=== PATIENT | male | born 1965 | race Caucasian/White ===

== ENCOUNTER 2017-07-20 12:50 | Inpatient (IN) | payer MEDICARE ==
--- NOTE | 2017-07-20 13:07 | ED ---
General Adult HPI - General Chief complaint: Allergic Reaction Stated complaint: allergic reaction Time Seen by Provider: 07/20/17 12:50 Source: patient, EMS, RN notes reviewed Mode of arrival: EMS - History of Present Illness Initial comments: This a 52-year-old male who presents emergency department complaining of having swelling of his lips and uvula. Patient was seen at [place] [address] and they were uncomfortable keeping him so they sent him to our emergency department. Patient was given epinephrine steroids and Benadryl and it did help reduce his symptoms but they did return and that is why he returned back to [place]. Patient is on lisinopril. Patient has had no difficulty swallowing or difficulty breathing. - Related Data Allergies Allergy/AdvReac Type Severity Reaction Status Date / Time lisinopril AdvReac Swelling Verified 07/20/17 12:54 Review of Systems ROS Statement: Those systems with pertinent positive or pertinent negative responses have been documented in the HPI. ROS Other: All systems not noted in ROS Statement are negative. Past Medical History Past Medical History: Chest Pain / Angina, COPD, Hyperlipidemia, Hypertension History of Any Multi-Drug Resistant Organisms: None Reported Past Surgical History: Hernia Repair Past Psychological History: No Psychological Hx Reported Smoking Status: Current every day smoker Past Alcohol Use History: None Reported Past Drug Use History: None Reported General Exam - General Exam Comments Initial Comments: GENERAL: Patient is well-developed and well-nourished. Patient is nontoxic and well- hydrated and is in mild distress. ENT: Neck is soft and supple. No significant lymphadenopathy is noted. Oropharynx is clear. Moist mucous membranes. Neck has full range of motion without eliciting any pain. Patient's uvula is swollen and upper lip is very swollen. EYES: The sclera were anicteric and conjunctiva were pink and moist. Extraocular movements were intact and pupils were equal round and reactive to light. Eyelids were unremarkable. PULMONARY: Unlabored respirations. Good breath sounds bilaterally. No audible rales rhonchi or wheezing was noted. CARDIOVASCULAR: There is a regular rate and rhythm without any murmurs gallops or rubs. ABDOMEN: Soft and nontender with normal bowel sounds. No palpable organomegaly was noted. There is no palpable pulsatile mass. SKIN: Skin is clear with no lesions or rashes and otherwise unremarkable. NEUROLOGIC: Patient is alert and oriented 2 Cranial nerves II through XII are grossly intact. Motor and sensory are also intact. Normal speech, volume and content. Symmetrical smile. MUSCULOSKELETAL: Normal extremities with adequate strength and full range of motion. No lower extremity swelling or edema. No calf tenderness. LYMPHATICS: No significant lymphadenopathy is noted PSYCHIATRIC: Normal psychiatric evaluation. Course Vital Signs 07/20/17 12:54 Temperature 100.1 F H Pulse Rate 95 Respiratory 18 Rate Blood Pressure 172/112 O2 Sat by Pulse 98 Oximetry Disposition Clinical Impression: Angioedema Disposition: ADMITTED IP TO THIS HOSP Referrals: Annmarie Segal DO [Primary Care Provider] - 1-2 days Time of Disposition: 13:08
[2017-07-20] MEDS ORDERED: SODIUM CHLORIDE 0.9% 1,000 ML IV ONE (13:08)
[2017-07-20] MEDS ORDERED: hydrALAZINE HCL 20 MG/ML 1 ML VIAL IVP STA ×2 (13:50→14:13)
[2017-07-20] MEDS ORDERED: THIAMINE 100 MG/ML 2 ML VIAL IM STA (15:49)
--- NOTE | 2017-07-20 16:06 | XR ---
EXAMINATION TYPE: XR chest 1V portable DATE OF EXAM: 07/20/2017 Comparison: None Clinical History: 52 year-old female shortness of breath, CHF Findings: The cardiomediastinal silhouette, aorta, and pulmonary vasculature are within normal limits. Some in terstitial prominence as a chronic appearance. Otherwise, lungs and pleural spaces are clear. Dege nerative changes at the right greater than left shoulders. Impression: Some chronic appearing changes. No acute process seen.
[2017-07-20 16:26] LABS: Basophils % (A) 0 %; CH 36.6; CHCM 33.6; Eosinophils # (A) 0.1 k/uL (0-0.7); Eosinophils % (A) 1 %; HCT 38.9 % (39.0-53.0); HDW 2.13; Luc # (Auto) 0.03; Luc % (Auto) 1; Lymphocytes # (A) 0.5 k/uL (1.0-4.8); Lymphocytes % (A) 9 %; MCH 36.7 pg (25.0-35.0); MCHC 33.5 g/dL (31.0-37.0); MCV 109.6 fL (80.0-100.0); Macrocytosis Marked; Mean Platelet Volume 9.3; Monocytes # (A) 0.2 k/uL (0-1.0); Monocytes % (A) 3 %; Neutrophils # (A) 4.8 k/uL (1.3-7.7); Neutrophils % (A) 87 %; RBC 3.55 m/uL (4.30-5.90); RDW 14.1 % (11.5-15.5); WBC 5.6 k/uL (3.8-10.6); WBC (Perox) 6.32
[2017-07-20 16:32] LABS: Calcium 9.1 mg/dL (8.4-10.2); Potassium 4.4 mmol/L (3.5-5.1); Total Bilirubin 0.7 mg/dL (0.2-1.3)
[2017-07-20 16:41] LABS: Appearance,Urine Clear (Clear); Bilirubin,Urine Negative (Negative); Glucose,Urine (UA) Trace (Negative); Ketones,Urine Negative (Negative); Leukocyte Esterase,Urine Negative (Negative); Mucus,Urine Rare /hpf; Nitrite,Urine Negative (Negative); PH, Urine 6.5 (5.0-8.0); Particle Count 832; Protein,Urine 3+ (Negative); RBC,Urine 1 /hpf (0-5); Specific Gravity,Urine 1.014 (1.001-1.035); UA Billing (MACRO vs. MICRO) MICRO; Urobilinogen,Urine <2.0 mg/dL (<2.0); WBC,Urine <1 /hpf (0-5)
[2017-07-20 16:42] LABS: Magnesium 0.5 mg/dL (1.6-2.3)
--- NOTE | 2017-07-20 16:43 | HP ---
HISTORY AND PHYSICAL DATE OF SERVICE: 07/20/2017. CHIEF COMPLAINT: Allergic reaction and lip swelling. HISTORY OF PRESENT ILLNESS: This 52-year-old gentleman with a past history of COPD, angina, hypertension, hyperlipidemia, history of nicotine dependence being followed by Dr. Nisreen Segal in [place] has present to [facility] in [place] also at least twice because of complaints swelling of lips and uvula. The patient was uncomfortable. Patient was on epinephrine and steroids and Benadryl and because of lack of improvement the patient was transferred to [facility] for further evaluation and treatment. Patient is on lisinopril also. There is no history of fever, rigors. No headache, loss of consciousness, seizures. The patient is slightly jittery at this time. PAST MEDICAL HISTORY: COPD, hypertension, hyperlipidemia. MEDICATIONS: Prior to admission include: list is not available. ALLERGIES: LISINOPRIL FAMILY HISTORY: No history of heart disease or strokes in the family. SOCIAL HISTORY: History of smoking. No history of alcohol intake. REVIEW OF SYSTEMS: ENT: As mentioned earlier. CARDIOVASCULAR: No angina. RESPIRATORY: No cough, hemoptysis. GI: No nausea. : No dysuria. NERVOUS SYSTEM: No numbness or weakness. ALLERGY/IMMUNOLOGY: No asthma or hayfever. MUSCULOSKELETAL: As mentioned earlier. HEMATOLOGY: No history of anemia. ENDOCRINE: No history of diabetes or hypothyroidism. CONSTITUTIONAL: As mentioned earlier. DERMATOLOGY: Negative. RHEUMATOLOGY: Negative. PSYCHIATRY: As mentioned earlier. PHYSICAL EXAMINATION: Patient is alert and oriented x3. Pulse 99, blood pressure 196/124, respiration 18, temperature 100.1, pulse ox 98% room air. HEENT: Conjunctivae normal. Oral mucosa moist. Otherwise upper lip swelling present, nontender. Dental caries present. NECK: No jugular venous distention. No carotid bruit. No lymph node enlargement. CARDIOVASCULAR: S1, S2. No S3, no S4. RESPIRATORY: Breath sounds diminished at the bases. A few scattered rhonchi and crackles. ABDOMEN: Soft, nontender. No mass palpable. LEGS: No edema. No swelling. NERVOUS SYSTEM: Higher functions as mentioned earlier. Moves all four limbs. No focal motor deficits. LYMPHATICS: No lymphadenopathy in the neck, axillae or groin. SKIN: No ulcer, rash, bleeding. LABS: Not available at this time. ASSESSMENT: 1. Bilateral lip swelling possibly angioedema possibly secondary to lisinopril. 2. Change in mental status, possibly metabolic encephalopathy. 3. Chronic obstructive pulmonary disease. 4. Hypertension. 5. Hyperlipidemia. 6. History of hernia repair. 7. History of nicotine dependence. RECOMMENDATIONS AND DISCUSSION: In this 52-year-old gentleman who presented with multiple complex medical issues , will monitor the patient closely. Continue the current medications, continue the symptomatic treatment. Otherwise, IV steroids have been initiated. I would also continue the Benadryl. I would also recommend Pepcid and continue to monitor. Basic labs will be ordered. CT scan of the brain to be done if not done previously. The prognosis guarded because of multiple complex medical issues. Further recommendations to follow. MMODL / IJN: [id number] / JOSELIN
[2017-07-20 16:56] VITALS: BMI 26.4
--- NOTE | 2017-07-20 16:58 | CT ---
EXAMINATION TYPE: CT brain wo con DATE OF EXAM: 07/20/2017 COMPARISON: NONE HISTORY: 52-year-old male with Facial swelling. TECHNIQUE: Examination was done in axial plane without intravenous contrast. Coronal and sagittal r econstructions performed. CT DLP: 1052.10 mGycm Automated exposure control for dose reduction was used. FINDINGS: There is no evidence of acute intracranial hemorrhage, acute ischemic changes, mass, mass-effect, or extra-axial fluid collection. There is no effacement of cerebral sulci or basal subarachnoid cister ns. There is no hydrocephalus. There is no midline shift. Lyons-white matter distinction is preserv ed. Mild patchy white matter hypodensities. Large polyp or mucosal retention cyst in the left maxillary sinus and some frothy partial opacificati on. Mastoid air cells are well pneumatized. Orbits and globes are intact. Questionable mild scalp swelling posteriorly, axial image 38. IMPRESSION: 1. No acute intracranial abnormality seen. Mild changes of chronic small vessel ischemic disease. 2. Left maxillary sinus disease with a large polyp or mucosal retention cyst. Some frothy partial opa cification could reflect an acute viral sinusitis. Clinically correlate.
[2017-07-20] MEDS: LORazepam 1 MG TAB PO PRN ×2 (16:59→21:01)
[2017-07-20] MEDS: NICOTINE 14MG/24HR PATCH TRANSDERM SCH (17:13)
[2017-07-20] MEDS: metFORMIN 500 MG TAB PO SCH (17:14)
[2017-07-20] MEDS: PANTOPRAZOLE 40 MG TABLET PO SCH (17:15)
[2017-07-20] MEDS: THIAMINE 100 MG TAB PO SCH (17:15)
[2017-07-20] MEDS: METOPROLOL TARTRATE 50 MG TAB PO SCH (17:15)
[2017-07-20 17:19] LABS: Glucose,Whole Blood 158 mg/dL (75-99)
[2017-07-20] MEDS: SODIUM CHLORIDE 0.9% 1,000 ML IV SCH (17:30)
[2017-07-20] MEDS: methylPREDNISolone SOD SUCCI 125 MG/2 ML VIAL IV SCH (18:20)
[2017-07-20] MEDS ORDERED: Magnesium Replacement Protocol 1 EACH MISC MISCELLANE PRN (18:52)
[2017-07-20] MEDS: MAGNESIUM SULFATE-D5W PMX 1 GM in DEXTROSE/WATER 1 100ML.BAG IVPB SCH ×2 (19:52→20:58)
[2017-07-20 20:39] LABS: Glucose,Whole Blood 110 mg/dL (75-99)
[2017-07-20] MEDS: FAMOTIDINE 20 MG/2 ML VIAL IV SCH (20:58)
[2017-07-20] MEDS: POTASSIUM CHLORIDE ER 20 MEQ TAB.ER PO SCH (20:58)
[2017-07-20] MEDS: cloNIDine HCL 0.2 MG TAB PO SCH (20:58)
[2017-07-20] MEDS: diphenhydrAMINE 50 MG/ML 1 ML VIAL IVP PRN (22:24)
[2017-07-20] MEDS: LORazepam 2 MG/ML SYRINGE IV PRN ×3 (22:25→23:45)
[2017-07-20] MEDS ORDERED: HALOPERIDOL LACTATE 5 MG/ML 1 ML VIAL IM PRN (23:34)
[2017-07-20] MEDS ORDERED: HALOPERIDOL LACTATE 5 MG/ML 1 ML VIAL IVP PRN (23:35)
[2017-07-21] LABS: Glucose,Whole Blood 125 mg/dL (75-99)
[2017-07-21] MEDS ORDERED: PROPOFOL 1,000 MG/100 ML VIAL IV ONE (00:55)
[2017-07-21] MEDS ORDERED: SUCCINYLCHOLINE CHLORIDE 100 MG/5 ML SYR IV ONE (01:15)
[2017-07-21] MEDS ORDERED: PROPOFOL 1,000 MG/100 ML VIAL IV SCH (01:15)
[2017-07-21] MEDS: MAGNESIUM SULFATE-D5W PMX 1 GM in DEXTROSE/WATER 1 100ML.BAG IVPB SCH ×4 (01:19→08:58)
[2017-07-21] MEDS: methylPREDNISolone SOD SUCCI 125 MG/2 ML VIAL IV SCH ×5 (01:21→23:56)
[2017-07-21] MEDS ORDERED: NALOXONE 0.4 MG/ML 1 ML VIAL IV PRN (01:22)
[2017-07-21] MEDS: LORazepam 2 MG/ML SYRINGE IV PRN ×11 (01:41→22:37)
--- NOTE | 2017-07-21 01:44 | XR ---
EXAM: XR Chest, 1 View CLINICAL HISTORY: Reason: Tube placement TECHNIQUE: Frontal view of the chest. COMPARISON: 07/20/17 FINDINGS: Lungs: Unremarkable. No consolidation. Pleural space: Unremarkable. No pneumothorax. Heart: Unremarkable. No cardiomegaly. Mediastinum: Unremarkable. Bones/joints: Unremarkable. Tubes, lines and devices: NG tube seen entering the stomach. Endotracheal tube in place with tip located 4 cm above the greta in satisfactory position. IMPRESSION: No acute findings. Satisfactory positioning of endotracheal tube and NG tube.
[2017-07-21 02:10] LABS: ABG Base Excess -3.9 mmol/L; ABG HCO3 21 mmol/L (21-25); ABG PCO2 38 mmHg (35-45); ABG PH 7.36 (7.35-7.45); ABG PO2 341 mmHg (83-108); ABG TCO2 22 mmol/L (19-24)
[2017-07-21 04:04] LABS: Basophils % (A) 0 %; CH 35.7; Eosinophils % (A) 1 %; HCT 31.3 % (39.0-53.0); HDW 2.07; HGB 10.2 gm/dL (13.0-17.5); Luc # (Auto) 0.08; Luc % (Auto) 2; Lymphocytes # (A) 0.6 k/uL (1.0-4.8); Lymphocytes % (A) 12 %; MCH 36.5 pg (25.0-35.0); MCHC 32.5 g/dL (31.0-37.0); MCV 112.3 fL (80.0-100.0); Macrocytosis Marked; Mean Platelet Volume 9.1; Monocytes # (A) 0.3 k/uL (0-1.0); Monocytes % (A) 5 %; Neutrophils # (A) 3.7 k/uL (1.3-7.7); Neutrophils % (A) 80 %; RBC 2.79 m/uL (4.30-5.90); WBC 4.6 k/uL (3.8-10.6); WBC (Perox) 4.78
[2017-07-21 04:12] LABS: Calcium 8.1 mg/dL (8.4-10.2); Magnesium 1.5 mg/dL (1.6-2.3); Phosphorous 4.2 mg/dL (2.5-4.5); Potassium 4.5 mmol/L (3.5-5.1)
--- NOTE | 2017-07-21 07:16 | XR ---
EXAMINATION TYPE: XR chest 1V portable DATE OF EXAM: 07/21/2017 COMPARISON: 07/21/2017 HISTORY: Tube placement TECHNIQUE: Single frontal view of the chest is obtained. FINDINGS: New right basilar opacity is seen obscuring the right hemidiaphragm and costophrenic angle with a gradient effect and likely related to a small right pleural effusion. Endotracheal tube appea rs slightly more cephalad in position in comparison to the prior exam, however this may relate to pat ient's chin positioning. Attention on follow-up exams. Enteric tube is coiled within the region of the gastric body with the fenestrated portion beyond the gastroesophageal junction and distal tip beyond the [id number]. Left lung remains clear. Cardiomed iastinal silhouette is stable. IMPRESSION: 1. New right basilar opacity, likely relating to small right pleural effusion and associated compress jomar subsegmental atelectasis. 2. Endotracheal tube tip is slightly more cephalad in position to the prior exam although this is lik juancho related to patient positioning.
[2017-07-21 08:10] LABS: Glucose,Whole Blood 137 mg/dL (75-99)
[2017-07-21] MEDS: metFORMIN 500 MG TAB PO SCH ×2 (08:49→17:29)
[2017-07-21] MEDS ORDERED: CHLORHEXIDINE GLUCONATE 15 ML CUP MUCOUS MEM SCH (09:00)
[2017-07-21] MEDS: FAMOTIDINE 20 MG/2 ML VIAL IV SCH (09:46)
[2017-07-21] MEDS: METOPROLOL TARTRATE 50 MG TAB PO SCH (09:47)
[2017-07-21] MEDS: SODIUM CHLORIDE 0.9% 1,000 ML IV SCH (09:47)
[2017-07-21] MEDS: cloNIDine HCL 0.2 MG TAB PO SCH ×2 (09:47→21:03)
[2017-07-21] MEDS: PANTOPRAZOLE 40 MG TABLET PO SCH (09:48)
[2017-07-21] MEDS: POTASSIUM CHLORIDE ER 20 MEQ TAB.ER PO SCH ×2 (09:48→20:57)
[2017-07-21] MEDS: diphenhydrAMINE 50 MG/ML 1 ML VIAL IVP PRN ×2 (10:29→21:55)
--- NOTE | 2017-07-21 10:55 | P.CNPUL ---
History of Present Illness Consult date: 07/21/17 Reason for consult: dyspnea, chest pain, hypoxemia Chief complaint: Angioedema History of present illness: Consult dated 07/21/2017 This is a 52-year-old male who was admitted on July 21. He apparently came into the emergency department complaining of swelling of his lips and uvula. He was seen a [facility] twice or uncomfortable keeping him and sent him to the emergency department. He received epinephrine steroids and Benadryl. Somewhere along the way, the patient was intubated. Today he looks like he might be ready for extubation. We'll put him on pressure support of 5 CPAP of 5 and see if we can get some weaning parameters and a cuff leak on him. The patient otherwise seems be doing relatively well. He was treated with all the usual state including antihistamines steroids and epinephrine. The patient does have a history of heavy drinking. His past medical history is positive for COPD hyperlipidemia hypertension and angina. He apparently is occurring every day smoker. The patient currently is on the vent settings of the assist control mode rate of 12 tidal volume is 500 FiO2 is 50% PEEP 5. The patient is receiving a saline IV at 75 mL an hour and propofol 50 mics per kilogram per minute. Review of Systems ROS unobtainable: due to endotracheal tube Past Medical History Past Medical History: Chest Pain / Angina, COPD, Hyperlipidemia, Hypertension History of Any Multi-Drug Resistant Organisms: None Reported Past Surgical History: Hernia Repair Past Anesthesia/Blood Transfusion Reactions: No Reported Reaction Past Psychological History: No Psychological Hx Reported Smoking Status: Current every day smoker Past Alcohol Use History: Daily Additional Past Alcohol Use History / Comment(s): Pt states that he has about 3 drinks a day. Past Drug Use History: None Reported Medications and Allergies Home Medications Medication Instructions Recorded Confirmed Type EPINEPHrine (Auto Inject) [Epipen] 0.3 mg IM ONCE PRN 07/21/17 07/21/17 History HYDROcodone/APAP 10-325MG [[place] 1 tab PO DAILY 07/21/17 07/21/17 History 10-325] Metoprolol Succinate [Toprol XL] 200 mg PO DAILY 07/21/17 07/21/17 History Omeprazole [Omeprazole] 20 mg PO DAILY 07/21/17 07/21/17 History amLODIPine [Norvasc] 10 mg PO DAILY 07/21/17 07/21/17 History Allergies Allergy/AdvReac Type Severity Reaction Status Date / Time lisinopril AdvReac Swelling Verified 07/20/17 12:54 Physical Exam Osteopathic Statement: *. No significant issues noted on an osteopathic structural exam other than those noted in the History and Physical/Consult. Vitals: Vital Signs Temp Pulse Pulse Resp BP BP Pulse Ox 07/21/17 10:00 80 31 H 175/113 100 07/21/17 09:30 57 L 19 156/104 98 07/21/17 09:00 97.8 F 57 L 17 151/103 98 07/21/17 08:30 58 L 20 144/102 97 07/21/17 08:00 56 L 18 177/111 100 07/21/17 07:30 55 L 17 156/103 100 07/21/17 07:00 56 L 17 159/106 100 07/21/17 06:30 57 L 19 174/112 100 07/21/17 06:00 56 L 18 143/98 100 07/21/17 05:30 57 L 19 137/97 100 07/21/17 05:00 62 12 144/102 100 07/21/17 04:30 62 22 147/100 100 07/21/17 04:00 96.7 F L 63 21 137/94 99 07/21/17 03:30 62 20 129/85 96 07/21/17 03:00 66 18 133/83 96 07/21/17 02:30 71 17 138/83 96 07/21/17 02:00 73 24 136/89 99 07/21/17 01:30 74 19 173/112 100 07/21/17 01:15 63 19 170/114 100 07/21/17 01:00 16 151/96 100 07/21/17 00:45 90 21 151/96 93 L 07/21/17 00:30 94 29 H 152/99 89 L 07/21/17 00:15 100.5 F H 97 29 H 147/92 94 L 07/21/17 00:00 110 H 19 154/100 92 L 07/20/17 20:00 16 07/20/17 19:42 98.0 F 92 16 175/109 97 07/20/17 16:30 18 07/20/17 14:50 97.8 F 120 H 18 175/111 98 07/20/17 14:20 104 H 167/103 100 07/20/17 13:59 191/114 07/20/17 13:42 99 18 196/124 07/20/17 12:54 100.1 F H 95 18 172/112 98 Intake and Output 07/20/17 07/21/17 07/21/17 22:59 06:59 14:59 Intake Total 1475 650 500 Output Total 555 495 Balance 1475 95 5 Intake: IV 650 500 Magnesium Sulfate-D5w Pmx 200 200 1 gm In Dextrose/Water 1 100ml.bag @ 100 mls/hr IVPB Q1H [facility] Rx#: [id number] Sodium Chloride 0.9% 1, 450 300 000 ml @ 75 mls/hr IV . [id number] [facility] Rx#:[id number] Intake, IV Titration 275 Amount Magnesium Sulfate-D5w Pmx 200 1 gm In Dextrose/Water 1 100ml.bag @ 100 mls/hr IVPB Q1H [facility] Rx#: [id number] Sodium Chloride 0.9% 1, 75 000 ml @ 75 mls/hr IV . [id number] [facility] Rx#:[id number] Oral 1200 Output: Gastric Drainage 150 100 Urine 405 395 Other: Voiding Method Urinal Indwelling Catheter Indwelling Catheter # Voids 2 2 Weight 88.451 kg 88.8 kg Patient Weight 07/22/17 06:59 Weight 88.8 kg No acute distress. Looks comfortable. Currently with an NG tube and a oral endotracheal tube. HEENT examination is grossly unremarkable. Mucous membranes are moist. No oral lesions. Neck supple. Full range of motion. No adenopathy or thyromegaly. Cardiovascular examination reveals regular rhythm rate. S1-S2 normal. No S3- S4 or murmur. Lungs reveal mostly clear breath sounds. A few scattered rhonchi. No wheezes or crackles. Breath sounds are equal bilaterally. Abdomen soft bowel sounds are heard. No masses or tenderness. Extremities are intact. No cyanosis clubbing or edema. Skin is without rash. Neurologic examination cannot be adequately performed. Results - Laboratory Findings CBC and BMP: 07/21/17 03:29 07/21/17 03:29 ABG ABG pH 7.36 (7.35-7.45) 07/21/17 01:45 ABG pCO2 38 mmHg (35-45) 07/21/17 01:45 ABG pO2 341 mmHg (83-108) H 07/21/17 01:45 ABG O2 Saturation 100.0 % (94-97) H 07/21/17 01:45 Abnormal lab findings: Abnormal Labs 07/20/17 07/20/17 07/20/17 15:58 15:58 16:22 RBC 3.55 L Hgb Hct 38.9 L MCV 109.6 H MCH 36.7 H Plt Count 146 L Lymphocytes # 0.5 L ABG pO2 ABG O2 Saturation Chloride 109 H Carbon Dioxide 18 L BUN 32 H Creatinine 2.20 H Glucose 126 H POC Glucose (mg/dL) Calcium Magnesium 0.5 L* Urine Protein 3+ H Urine Glucose (UA) Trace H Urine Blood Trace H Urine Mucus Rare H Urine Opiates Screen Detected H 07/20/17 07/20/17 07/20/17 17:17 20:34 23:58 RBC Hgb Hct MCV MCH Plt Count Lymphocytes # ABG pO2 ABG O2 Saturation Chloride Carbon Dioxide BUN Creatinine Glucose POC Glucose (mg/dL) 158 H 110 H 125 H Calcium Magnesium Urine Protein Urine Glucose (UA) Urine Blood Urine Mucus Urine Opiates Screen 07/21/17 07/21/17 07/21/17 01:45 03:29 03:29 RBC 2.79 L Hgb 10.2 L Hct 31.3 L MCV 112.3 H MCH 36.5 H Plt Count 103 L Lymphocytes # 0.6 L ABG pO2 341 H ABG O2 Saturation 100.0 H Chloride 112 H Carbon Dioxide 19 L BUN 40 H Creatinine 2.30 H Glucose 129 H POC Glucose (mg/dL) Calcium 8.1 L Magnesium 1.5 L Urine Protein Urine Glucose (UA) Urine Blood Urine Mucus Urine Opiates Screen 07/21/17 08:08 RBC Hgb Hct MCV MCH Plt Count Lymphocytes # ABG pO2 ABG O2 Saturation Chloride Carbon Dioxide BUN Creatinine Glucose POC Glucose (mg/dL) 137 H Calcium Magnesium Urine Protein Urine Glucose (UA) Urine Blood Urine Mucus Urine Opiates Screen - Diagnostic Findings Chest x-ray: image reviewed Assessment and Plan (1) Respiratory failure Status: Acute (2) Hypoxemia Status: Acute (3) Hypertension Status: Acute (4) Lipidemia Status: Acute (5) COPD (chronic obstructive pulmonary disease) Status: Acute (6) Angioedema Status: Acute Plan: Plan dated 07/21/2017 We will see if the patient is ready for extubation. We will hold his sedation. We will get weaning parameters. We'll place the patient on pressure support of 5 and CPAP of 5. We'll do a cuff leak. Additional recommendations and suggestions are forthcoming. Time with Patient: Greater than 30
[2017-07-21 11:32] LABS: Glucose,Whole Blood 136 mg/dL (75-99)
[2017-07-21] MEDS ORDERED: SODIUM CHLORIDE 0.9% 1,000 ML with MVI, ADULT NO.4 WITH VIT K 10 ML, THIAMINE 100 MG, F... IV ONE ×4 (13:23)
[2017-07-21] MEDS ORDERED: LABETALOL 5 MG/ML VIAL MDV IVP STA (13:30)
[2017-07-21] MEDS: NICOTINE 14MG/24HR PATCH TRANSDERM SCH (13:46)
[2017-07-21 16:56] LABS: Glucose,Whole Blood 103 mg/dL (75-99)
[2017-07-21] MEDS: THIAMINE 100 MG TAB PO SCH (17:26)
--- NOTE | 2017-07-21 18:14 | P.PN ---
Subjective Date of service 07/21/2017. Progress note being dictated for Dr. Dorsey. Interval history: This a 52-year-old gentleman admitted with angioedema of uvula and lips, metabolic, toxic encephalopathy, DTs, and multiple other medical issues. Maintained on CIWA protocol.Agitated, combative. Received Haldol. Transferred to ICU. Developed respiratory distress and required intubation. Extubated today and currently maintaining O2 sats of 96% on 4 L nasal cannula. Parents at bedside. They state patient lives with them. Parents report patient is severely depressed, sneaks to drink in his car, hides in his bedroom for lengthy amounts of time,stays up all night, sleeps dueing the day, unaware of drug abuse. Parents state patient also follows at the pain clinic. Patient currently DTs, confused. Disoriented, agitated. Brain CT reported no acute intracranial abnormality, left maxillary sinus disease with large polyp/mucosal retention cyst/sinusitis. Past medical history reviewed Review of systems unable to obtain given patient's current state of confusion, disorientation. Active Medications Chlorhexidine Gluconate (Peridex) 15 ml MUCOUS MEM BID [facility] Last Admin: 07/21/17 09:48 Dose: 15 ml Clonidine (Catapres) 0.2 mg PO BID [facility] Last Admin: 07/21/17 09:47 Dose: 0.2 mg Diphenhydramine HCl (Benadryl) 25 mg IVP Q6HR PRN PRN Reason: Allergy Symptoms Last Admin: 07/21/17 10:29 Dose: 25 mg Famotidine (Pepcid) 20 mg IV DAILY [facility] Haloperidol Lactate (Haldol) 5 mg IM Q6HR PRN PRN Reason: Agitation or Acute Psychosis Last Admin: 07/20/17 23:46 Dose: 5 mg Haloperidol Lactate (Haldol) 0.5 mg IVP Q2H PRN PRN Reason: Agitation or Acute Psychosis Last Admin: 07/21/17 11:27 Dose: 0.5 mg Propofol (Diprivan) 1,000 mg in 100 mls @ 0 mls/hr IV .Q0M [facility]; Titrate PRN Reason: Protocol Last Admin: 07/21/17 05:10 Dose: 50 mcg/kg/min, 26.535 mls/hr Sodium Chloride (Saline 0.9%) 1,000 mls @ 100 mls/hr IV .BY DURATION [facility] Last Admin: 07/21/17 15:18 Dose: 100 mls/hr Parenteral Vitamin Supplement 10 ml/ Thiamine HCl 100 mg/Folic Acid 1 mg/ Sodium Chloride 1,011.2 mls @ 100 mls/hr IV .BY DURATION [facility] Last Admin: 07/21/17 17:28 Dose: 100 mls/hr Lorazepam (Ativan) 1 mg IV Q2HR PRN PRN Reason: CIWA 8 or 9 Last Admin: 07/21/17 10:29 Dose: 1 mg Lorazepam (Ativan) 1 mg IV Q1HR PRN PRN Reason: CIWA 10 to 15 Last Admin: 07/21/17 15:48 Dose: 1 mg Lorazepam (Ativan) 1 mg PO Q1HR PRN PRN Reason: Agitation or Acute Anxiety Last Admin: 07/20/17 21:01 Dose: 1 mg Metformin HCl (Glucophage) 1,000 mg PO BID-W/MEALS [facility] Last Admin: 07/21/17 17:29 Dose: Not Given Methylprednisolone Sodium Succinate (Solu-Medrol) 60 mg IV Q6HR [facility] Last Admin: 07/21/17 13:45 Dose: 60 mg Metoprolol Succinate (Toprol Xl) 200 mg PO DAILY [facility] Miscellaneous Information (Magnesium Per Protocol) 1 each MISCELLANE DAILY PRN ; Protocol PRN Reason: Per Protocol Naloxone HCl (Narcan) 0.2 mg IV Q2M PRN PRN Reason: Opioid Reversal Nicotine (Habitrol 14mg/24hr Patch) 1 patch TRANSDERM DAILY [facility] Last Admin: 07/21/17 13:46 Dose: 1 patch Pantoprazole Sodium (Protonix) 40 mg PO AC-BRKFST [facility] Last Admin: 07/21/17 09:48 Dose: Not Given Potassium Chloride (K-Dur 20) 20 meq PO BID [facility] Last Admin: 07/21/17 09:48 Dose: Not Given Objective - Vital Signs Vital signs: Vital Signs Temp 99.3 F 07/21/17 16:00 Pulse 93 07/21/17 16:30 Resp 33 H 07/21/17 17:00 BP 158/104 07/21/17 17:00 Pulse Ox 94 L 07/21/17 16:30 Intake & Output 07/20/17 07/21/17 07/21/17 18:59 06:59 18:59 Intake Total 2125 1075 Output Total 555 1155 Balance 1570 -80 Weight 88.451 kg 88.8 kg Intake: IV 650 875 Magnesium Sulfate-D5w Pmx 200 200 1 gm In Dextrose/Water 1 100ml.bag @ 100 mls/hr IVPB Q1H [facility] Rx#: [id number] Sodium Chloride 0.9% 1, 450 675 000 ml @ 75 mls/hr IV . [id number] [facility] Rx#:[id number] Intake, IV Titration 275 200 Amount Magnesium Sulfate-D5w Pmx 200 1 gm In Dextrose/Water 1 100ml.bag @ 100 mls/hr IVPB Q1H [facility] Rx#: [id number] Mvi, Adult No.4 with Vit 200 K 10 ml Thiamine 100 mg Folic Acid 1 mg In Sodium Chloride 0.9% 1,000 ml @ 100 mls/hr IV .BY DURATION [facility] Rx#: [id number] Sodium Chloride 0.9% 1, 75 000 ml @ 75 mls/hr IV . [id number] [facility] Rx#:[id number] Oral 1200 Output: Gastric Drainage 150 100 Urine 405 1055 Other: Voiding Method Urinal Indwelling Catheter Indwelling Catheter # Voids 2 2 - Exam PHYSICAL EXAM: VITAL SIGNS: As above GENERAL: Sitting up in bed, confused HEENT: Conjunctivae normal. eyes normal. NECK: No JVD. No thyroid enlargement. CARDIOVASCULAR: S1, S2 muffled. No murmur RESPIRATION: Breath sounds diminished in the bases. Scattered rhonchi, no wheezing. ABDOMEN: Soft, nontender . No guarding. no masses palpable.Bowel sounds heard. LEGS: No edema. no swelling PSYCHIATRY: Confused ,Disoriented, answers to name. Agitated. NERVOUS SYSTEM: Unable to perform given patient's current confusion and agitation and disorientation Skin: no ulcer no rash - Labs CBC & Chem 7: 07/21/17 03:29 07/21/17 03:29 Labs: Abnormal Lab Results - Last 24 Hours (Table) 07/20/17 07/20/17 07/21/17 Range/Units 20:34 23:58 01:45 RBC (4.30-5.90) m/uL Hgb (13.0-17.5) gm/dL Hct (39.0-53.0) % MCV (80.0-100.0) fL MCH (25.0-35.0) pg Plt Count (150-450) k/uL Lymphocytes # (1.0-4.8) k/uL ABG pO2 341 H (83-108) mmHg ABG O2 Saturation 100.0 H (94-97) % Chloride (98-107) mmol/L Carbon Dioxide (22-30) mmol/L BUN (9-20) mg/dL Creatinine (0.66-1.25) mg/dL Glucose (74-99) mg/dL POC Glucose (mg/dL) 110 H 125 H (75-99) mg/dL Calcium (8.4-10.2) mg/dL Magnesium (1.6-2.3) mg/dL 07/21/17 07/21/17 07/21/17 Range/Units 03:29 03:29 08:08 RBC 2.79 L (4.30-5.90) m/uL Hgb 10.2 L (13.0-17.5) gm/dL Hct 31.3 L (39.0-53.0) % MCV 112.3 H (80.0-100.0) fL MCH 36.5 H (25.0-35.0) pg Plt Count 103 L (150-450) k/uL Lymphocytes # 0.6 L (1.0-4.8) k/uL ABG pO2 (83-108) mmHg ABG O2 Saturation (94-97) % Chloride 112 H (98-107) mmol/L Carbon Dioxide 19 L (22-30) mmol/L BUN 40 H (9-20) mg/dL Creatinine 2.30 H (0.66-1.25) mg/dL Glucose 129 H (74-99) mg/dL POC Glucose (mg/dL) 137 H (75-99) mg/dL Calcium 8.1 L (8.4-10.2) mg/dL Magnesium 1.5 L (1.6-2.3) mg/dL 07/21/17 07/21/17 Range/Units 11:30 16:54 RBC (4.30-5.90) m/uL Hgb (13.0-17.5) gm/dL Hct (39.0-53.0) % MCV (80.0-100.0) fL MCH (25.0-35.0) pg Plt Count (150-450) k/uL Lymphocytes # (1.0-4.8) k/uL ABG pO2 (83-108) mmHg ABG O2 Saturation (94-97) % Chloride (98-107) mmol/L Carbon Dioxide (22-30) mmol/L BUN (9-20) mg/dL Creatinine (0.66-1.25) mg/dL Glucose (74-99) mg/dL POC Glucose (mg/dL) 136 H 103 H (75-99) mg/dL Calcium (8.4-10.2) mg/dL Magnesium (1.6-2.3) mg/dL Microbiology - Last 24 Hours (Table) 07/21/17 01:30 Urine Culture - Preliminary Urine,Catheterized Assessment and Plan Plan: 1. Acute hypoxic respiratory failure, status post mechanical ventilation. 2. DTs, EtOH abuse, possibly drug abuse. 3. Acute angioedema, possibley related to lisniopril 4. Acute COPD exacerbation 5. Change in mental status, acute metabolic, toxic encephalopathy. Plan: Continue on current medication regime ,monitoring and symptomatic treatment. Psych consult initiated for severe depression as reported by parents. Social work consulted for outpatient rehab/resources. Maintain CIWY protocol. Prognosis guarded. Parents updated at bedside on plan of care. The impression and plan of care has been dictated as directed as a scribe. : I performed a H&P examination of this patient and discussed the same with the dictator. I agree with the dictator's note. Any additional findings/opinions/ etc. will be noted.
[2017-07-21 20:24] LABS: Glucose,Whole Blood 112 mg/dL (75-99)
[2017-07-21] MEDS: LABETALOL 5 MG/ML VIAL MDV IVP PRN (20:51)
[2017-07-22] MEDS: LABETALOL 5 MG/ML VIAL MDV IVP PRN ×3 (00:42→23:33)
[2017-07-22] MEDS: LORazepam 2 MG/ML SYRINGE IV PRN ×4 (04:36→20:12)
[2017-07-22] MEDS: diphenhydrAMINE 50 MG/ML 1 ML VIAL IVP PRN (04:51)
[2017-07-22] MEDS: methylPREDNISolone SOD SUCCI 125 MG/2 ML VIAL IV SCH ×4 (05:23→23:34)
[2017-07-22 06:12] LABS: Calcium 9.2 mg/dL (8.4-10.2); Magnesium 1.6 mg/dL (1.6-2.3); Potassium 4.7 mmol/L (3.5-5.1)
[2017-07-22 07:50] LABS: Glucose,Whole Blood 107 mg/dL (75-99)
[2017-07-22] MEDS: MAGNESIUM SULFATE-D5W PMX 1 GM in DEXTROSE/WATER 1 100ML.BAG IVPB SCH ×2 (07:55→09:07)
[2017-07-22] MEDS ORDERED: FAMOTIDINE 20 MG/2 ML VIAL IV SCH (09:00)
[2017-07-22] MEDS: NICOTINE 14MG/24HR PATCH TRANSDERM SCH (09:03)
[2017-07-22] MEDS: cloNIDine HCL 0.2 MG TAB PO SCH ×2 (09:03→20:12)
[2017-07-22] MEDS: PANTOPRAZOLE 40 MG TABLET PO SCH (09:03)
[2017-07-22] MEDS: METOPROLOL SUCCINATE (ER) 100 MG TAB.ER.24H PO SCH (09:03)
[2017-07-22 09:37] LABS: Basophils % (A) 0 %; CH 36.1; CHCM 32.5; Eosinophils # (A) 0.1 k/uL (0-0.7); Eosinophils % (A) 1 %; HCT 32.7 % (39.0-53.0); HDW 2.17; HGB 10.9 gm/dL (13.0-17.5); Luc # (Auto) 0.08; Luc % (Auto) 1; Lymphocytes # (A) 0.5 k/uL (1.0-4.8); Lymphocytes % (A) 5 %; MCH 37.4 pg (25.0-35.0); MCHC 33.5 g/dL (31.0-37.0); MCV 111.7 fL (80.0-100.0); Macrocytosis Marked; Mean Platelet Volume 9.2; Monocytes # (A) 0.5 k/uL (0-1.0); Monocytes % (A) 5 %; Neutrophils # (A) 8.8 k/uL (1.3-7.7); Neutrophils % (A) 89 %; RBC 2.92 m/uL (4.30-5.90); RDW 14.1 % (11.5-15.5)
--- NOTE | 2017-07-22 11:55 | P.PN ---
Subjective This is a 52-year-old male who was admitted on July 21. He apparently came into the emergency department complaining of swelling of his lips and uvula. He was seen a [facility] twice or uncomfortable keeping him and sent him to the emergency department. He received epinephrine steroids and Benadryl. Somewhere along the way, the patient was intubated. Today he looks like he might be ready for extubation. We'll put him on pressure support of 5 CPAP of 5 and see if we can get some weaning parameters and a cuff leak on him. The patient otherwise seems be doing relatively well. He was treated with all the usual state including antihistamines steroids and epinephrine. The patient does have a history of heavy drinking. His past medical history is positive for COPD hyperlipidemia hypertension and angina. He apparently is occurring every day smoker. Patient is seen again today 07/22/2017 in follow-up in the intensive care unit. He was successfully extubated yesterday. He is currently on 4 L/m per nasal cannula to maintain O2 saturations in the 90s. He has been going through alcohol withdrawal and has been agitated at times. He is on the CIWA protocol. He is has a 0.9 normal saline at 100 MLS per hour alternating with MVI. He is currently resting fairly comfortably in bed. He is alternating between periods of sleepiness and snoring versus agitation. Objective - Vital Signs Vital signs: Vital Signs Temp 99.6 F 07/22/17 08:00 Pulse 94 07/22/17 09:00 Resp 36 H 07/22/17 09:00 BP 133/80 07/22/17 09:00 Pulse Ox 96 07/22/17 09:00 Intake & Output 07/21/17 07/22/17 07/22/17 18:59 06:59 18:59 Intake Total 1175 1200 300 Output Total 1215 1455 325 Balance -40 -255 -25 Weight 88.8 kg 88.5 kg 88.5 kg Intake: IV 875 Magnesium Sulfate-D5w Pmx 200 1 gm In Dextrose/Water 1 100ml.bag @ 100 mls/hr IVPB Q1H [facility] Rx#: [id number] Sodium Chloride 0.9% 1, 675 000 ml @ 75 mls/hr IV . [id number] Rx#:[id number] Intake, IV Titration 300 1200 300 Amount Magnesium Sulfate-D5w Pmx 200 1 gm In Dextrose/Water 1 100ml.bag @ 100 mls/hr IVPB Q1H [facility] Rx#: [id number] Mvi, Adult No.4 with Vit 300 800 K 10 ml Thiamine 100 mg Folic Acid 1 mg In Sodium Chloride 0.9% 1,000 ml @ 100 mls/hr IV .BY DURATION [facility] Rx#: [id number] Sodium Chloride 0.9% 1, 400 100 000 ml @ 100 mls/hr IV . BY DURATION [facility] Rx#: [id number] Output: Gastric Drainage 100 Urine 1115 1455 325 Other: Voiding Method Indwelling Catheter Indwelling Catheter Indwelling Catheter # Voids 2 2 - Exam No acute distress. Looks comfortable. HEENT examination is grossly unremarkable. Mucous membranes are moist. No oral lesions. Neck supple. Full range of motion. No adenopathy or thyromegaly. Cardiovascular examination reveals regular rhythm rate. S1-S2 normal. No S3- S4 or murmur. Lungs reveal mostly clear breath sounds. A few scattered rhonchi. No wheezes or crackles. Breath sounds are equal bilaterally. Abdomen soft bowel sounds are heard. No masses or tenderness. Extremities are intact. No cyanosis clubbing or edema. Skin is without rash. Neurologic examination cannot be adequately performed. - Labs CBC & Chem 7: 07/22/17 09:03 07/22/17 05:31 Labs: Abnormal Lab Results - Last 24 Hours (Table) 07/21/17 07/21/17 07/22/17 Range/Units 16:54 20:20 05:31 RBC (4.30-5.90) m/uL Hgb (13.0-17.5) gm/dL Hct (39.0-53.0) % MCV (80.0-100.0) fL MCH (25.0-35.0) pg Plt Count (150-450) k/uL Neutrophils # (1.3-7.7) k/uL Lymphocytes # (1.0-4.8) k/uL Chloride 112 H (98-107) mmol/L Carbon Dioxide 19 L (22-30) mmol/L BUN 38 H (9-20) mg/dL Creatinine 2.00 H (0.66-1.25) mg/dL Glucose 109 H (74-99) mg/dL POC Glucose (mg/dL) 103 H 112 H (75-99) mg/dL Phosphorus 6.0 H (2.5-4.5) mg/dL 07/22/17 07/22/17 Range/Units 07:48 09:03 RBC 2.92 L (4.30-5.90) m/uL Hgb 10.9 L (13.0-17.5) gm/dL Hct 32.7 L (39.0-53.0) % MCV 111.7 H (80.0-100.0) fL MCH 37.4 H (25.0-35.0) pg Plt Count 134 L (150-450) k/uL Neutrophils # 8.8 H (1.3-7.7) k/uL Lymphocytes # 0.5 L (1.0-4.8) k/uL Chloride (98-107) mmol/L Carbon Dioxide (22-30) mmol/L BUN (9-20) mg/dL Creatinine (0.66-1.25) mg/dL Glucose (74-99) mg/dL POC Glucose (mg/dL) 107 H (75-99) mg/dL Phosphorus (2.5-4.5) mg/dL Microbiology - Last 24 Hours (Table) 07/21/17 01:30 Urine Culture - Preliminary Urine,Catheterized Assessment and Plan Plan: Impression: #1 Acute hypoxic respiratory failure acquiring intubation and mechanical ventilation secondary to acute alcohol withdrawal. Extubated 07/21/2017. #2 Acute and ongoing alcohol withdrawal. #3 Acute exacerbation of chronic obstructive pulmonary disease. #4 Chronic and ongoing tobacco dependence. #5 Hypertension. #6 Angioedema, resolved. Plan: The patient was seen and evaluated by Dr. Ortega. We'll continue with his current medications. A sitter remains at the bedside. We will continue the CIWA protocol. We'll continue to monitor him here closely in the intensive care unit another 24 hours. We'll continue to follow.
[2017-07-22] MEDS: POTASSIUM CHLORIDE ER 20 MEQ TAB.ER PO SCH ×2 (14:27→20:11)
--- NOTE | 2017-07-22 15:19 | P.CN ---
Psychiatric Consult - . Consult date: 07/22/17 Consult:: 07/22/17 15:02 Identification and Reason for Consult: Patient is a 52-year-old male who was admitted for angioedema, consultations requested for depression patient's chart was reviewed and spoke with nursing staff and patient was interviewed in his room no family members are present. History of Present Illness: Patient states that he has had a history of episodes of facial swelling beginning 4 years ago, he states that he was sleeping on a couch and is time began to enlarge he was seen in the emergency room given steroids and it improved, he reports that year later he had another episode and had another episode after that this he states will be his fourth episode. He reports that he has unable to identify a precipitant to this and states that he has not been on any new medications recently. Patient is slightly groggy and the interview was ended before being completed due to the patient becoming increasingly sleepy and not being able to respond to questions easily. Patient states that he was treated in the past for depression by a psychiatrist in [place] that lasted for about a year and he reports he was feeling lazy at the time, decreased appetite decreased interest was not working and he denies that he had any suicidal thoughts at that time were made an attempt here he states the medications didn't help him. Patient did not verbalize that he was feeling depressed at this time although due to his being groggy I will revisit this on the next interview. Past Psychiatric History: Patient denies any inpatient psychiatric treatment and states he was treated by a psychiatrist in [place] for 1 year beginning in the year 1999 was treated with Zoloft. He reports the medication did not help. Past Medical/Surgical History: Patient has a history of COPD, angina, hypertension and hyperlipidemia and is status post hernia repair. Family History: [Unable to obtain at this time] Social History: Patient states he was born and raised in [place] and his parents are both alive. He states he has 2 brothers. He states he quit school in the 11th grade to begin working. He states he was in special education since seventh grade for an unknown reason he states that he is able to complete a job application but at that may take him some time, he states he is able to read and write. 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 Is unclear to me if he is on Social Security disability or not the patient was not able to answer this question reliably. Patient states he has been once for 25 years and was in January 2016. He has a son age 25 and a daughter age 24. Patient states he currently lives with his parents and has for the last 4 years. Substance Use History: Patient states he been drinking alcohol since the age of 16, states he is drinking 3 beers a day and about 4 ounces of liquor. He reported no blackouts but further history was not obtained as the patient became increasingly sleepy and will complete this on another interview Legal History: Not obtained at this time Mental Status:Appearance/Attitude: Patient is in the ICU with soft restraints, he appeared in no acute distress, patient appeared to have tremors in his feet, hands Behavior: Patient did not exhibit any psychomotor agitation or retardation Speech/Language: Patient was spontaneous, speech was at times slowed due to his being groggy, he was coherent Thought Process: Patient was goal-directed, needed some encouragement to elaborate Thought Content: Patient while he was interviewing him turned began speaking to what he described as a spooky kid in the corner he directed the kid to speak with me states that the kid when leave him alone. Patient did not verbalize any delusional or paranoid ideation Suicidal/Homicidal Ideation: Patient denied any suicidal or homicidal ideation at this time Sensorium/Cognition: Patient was groggy, oriented to person further cognitive testing was not obtained at this time due to his being too groggy to test Mood/Affect: Patient was cooperative with affect was blunted Insight/Judgement: Patient's insight and judgment were not assessed Assessment: Patient is being treated for angioedema, he has been receiving IV steroids started in the evening of July 20, patient became confused and agitated in the evening of the , patient has been receiving IV steroids as well as Ativan per [facility] protocol and on examination today was groggy from the medication and I needed to end the interview and will return to complete the evaluation. Patient is currently experiencing visual hallucinations, has a history of using alcohol per nursing staff his mother and father state that he discretely drinks and it is unclear how much the patient has been drinking but he does state that he's been using alcohol since the age of 16. Diagnosis: Delirium, history of depression Plan: Will return and complete the evaluation tomorrow when the patient is more alert and better able to cooperate with the evaluation. Patient has a history of using alcohol since the age of 16 and is unclear that we how much he has been drinking prior to his admission, patient has also been on IV steroids since July 20 due to his angioedema. Patient is currently having visual hallucinations, has been confused and agitated and is receiving Ativan with improvement in his mental status. We will return tomorrow and complete the evaluation. 07/22/17 15:07
[2017-07-22 15:54] LABS: Glucose,Whole Blood 118 mg/dL (75-99)
[2017-07-22 17:35] LABS: Glucose,Whole Blood 130 mg/dL (75-99)
[2017-07-22 21:06] LABS: Glucose,Whole Blood 137 mg/dL (75-99)
[2017-07-23] MEDS: HYDROcodone/APAP 5-325MG 1 EACH TAB PO PRN ×2 (00:56→13:19)
[2017-07-23] MEDS: LORazepam 2 MG/ML SYRINGE IV PRN ×4 (01:57→22:58)
[2017-07-23] MEDS: LABETALOL 5 MG/ML VIAL MDV IVP PRN ×3 (02:33→17:22)
[2017-07-23] MEDS ORDERED: amLODIPine 5 MG TAB PO STA ×2 (03:13→11:14)
[2017-07-23 05:18] LABS: Calcium 9.1 mg/dL (8.4-10.2); Magnesium 1.5 mg/dL (1.6-2.3); Phosphorous 3.7 mg/dL (2.5-4.5); Potassium 4.2 mmol/L (3.5-5.1)
[2017-07-23] MEDS: methylPREDNISolone SOD SUCCI 125 MG/2 ML VIAL IV SCH ×4 (05:19→23:05)
[2017-07-23] MEDS ORDERED: Magnesium Replacement Protocol 1 EACH MISC MISCELLANE PRN (05:37)
[2017-07-23 05:41] LABS: Basophils % (A) 0 %; CH 36.2; CHCM 33.3; Eosinophils # (A) 0.1 k/uL (0-0.7); Eosinophils % (A) 1 %; HCT 32.7 % (39.0-53.0); HDW 2.19; HGB 11.2 gm/dL (13.0-17.5); Luc # (Auto) 0.07; Luc % (Auto) 1; Lymphocytes # (A) 0.5 k/uL (1.0-4.8); Lymphocytes % (A) 8 %; MCH 37.3 pg (25.0-35.0); MCHC 34.1 g/dL (31.0-37.0); MCV 109.2 fL (80.0-100.0); Macrocytosis Marked; Monocytes # (A) 0.3 k/uL (0-1.0); Monocytes % (A) 5 %; Neutrophils # (A) 5.4 k/uL (1.3-7.7); Neutrophils % (A) 85 %; RBC 2.99 m/uL (4.30-5.90); RDW 13.8 % (11.5-15.5); WBC 6.4 k/uL (3.8-10.6); WBC (Perox) 6.68
[2017-07-23] MEDS: MAGNESIUM SULFATE-D5W PMX 1 GM in DEXTROSE/WATER 1 100ML.BAG IVPB SCH ×2 (06:20→07:51)
[2017-07-23] MEDS: METOPROLOL SUCCINATE (ER) 100 MG TAB.ER.24H PO SCH (06:54)
[2017-07-23 07:05] LABS: Glucose,Whole Blood 120 mg/dL (75-99)
--- NOTE | 2017-07-23 07:36 | XR ---
EXAMINATION TYPE: XR chest 1V portable DATE OF EXAM: 07/23/2017 HISTORY: Shortness of breath. COMPARISON: None. TECHNIQUE: Single view of the chest is submitted. FINDINGS: Endotracheal tube and NG tube have been removed. Demonstrated are scattered senescent parenchymal change. There is improving aeration right lower lobe with residual infiltrate or atelectasis. The heart is stable. Hilar and mediastinal structures are within normal limits. Degenerative changes are seen of the dorsal spine. IMPRESSION: 1. There is improving aeration right lower lobe with residual infiltrate or atelectasis.
[2017-07-23] MEDS: NICOTINE 14MG/24HR PATCH TRANSDERM SCH (08:10)
[2017-07-23] MEDS: PANTOPRAZOLE 40 MG TABLET PO SCH (08:11)
[2017-07-23] MEDS: cloNIDine HCL 0.2 MG TAB PO SCH ×2 (08:11→20:46)
[2017-07-23] MEDS ORDERED: amLODIPine 5 MG TAB PO SCH (09:00)
--- NOTE | 2017-07-23 10:16 | P.PN ---
Subjective Progress note dated 07/23/2017 This is a 52-year-old male who was admitted with a diagnosis of angioedema and obstructed upper airway. He was intubated and subsequently successfully extubated a day ago. He's currently on O2 but that has been weaned off and is currently just now on room air. Getting an IV appointment 9 at 100 mL now which could be discontinued. He is eating. Is much less agitated. Very alert and oriented. Drinks a lot of vodka every day. The patient is otherwise doing well and could be transferred out to the general medical floor. No other major issues or problems with this patient at this time. Objective - Vital Signs Vital signs: Vital Signs Temp 98 F 07/23/17 08:00 Pulse 75 07/23/17 09:00 Resp 23 07/23/17 09:00 BP 166/106 07/23/17 09:00 Pulse Ox 94 L 07/23/17 09:00 Intake & Output 07/22/17 07/23/17 07/23/17 18:59 06:59 18:59 Intake Total 1300 1111.2 100 Output Total 1675 1565 700 Balance -375 -453.8 -600 Weight 88.5 kg 83 kg Intake: Intake, IV Titration 300 1011.2 100 Amount Magnesium Sulfate-D5w Pmx 200 1 gm In Dextrose/Water 1 100ml.bag @ 100 mls/hr IVPB Q1H [facility] Rx#: [id number] Magnesium Sulfate-D5w Pmx 100 1 gm In Dextrose/Water 1 100ml.bag @ 100 mls/hr IVPB Q1H [facility] Rx#: [id number] Mvi, Adult No.4 with Vit 1011.2 K 10 ml Thiamine 100 mg Folic Acid 1 mg In Sodium Chloride 0.9% 1,000 ml @ 100 mls/hr IV .BY DURATION [facility] Rx#: [id number] Sodium Chloride 0.9% 1, 100 000 ml @ 100 mls/hr IV . BY DURATION [facility] Rx#: [id number] Oral 1000 100 Output: Urine 1675 1565 700 Other: Voiding Method Indwelling Catheter Indwelling Catheter Indwelling Catheter # Voids 2 2 - Exam No acute distress, oriented 3. Double EENT examination is grossly unremarkable. Next membranes are moist. No oral lesions. Neck supple. Full range of motion. No adenopathy or thyromegaly. Cardiovascular examination reveals regular rhythm rate. S1-S2 normal. No S3- S4 or murmur. Lungs reveal minutes breath sounds. Wheezes or rhonchi. No crackles. Breath sounds are equal. Abdomen soft bowel sounds are heard. No masses or tenderness. Extremities are intact. No cyanosis clubbing or edema. Skin is without rash. Neurologic examination is nonfocal. - Labs CBC & Chem 7: 07/23/17 04:40 07/23/17 04:40 Labs: Abnormal Lab Results - Last 24 Hours (Table) 07/22/17 07/22/17 07/22/17 Range/Units 12:01 17:33 21:04 RBC (4.30-5.90) m/uL Hgb (13.0-17.5) gm/dL Hct (39.0-53.0) % MCV (80.0-100.0) fL MCH (25.0-35.0) pg Lymphocytes # (1.0-4.8) k/uL Chloride (98-107) mmol/L Carbon Dioxide (22-30) mmol/L BUN (9-20) mg/dL Creatinine (0.66-1.25) mg/dL Glucose (74-99) mg/dL POC Glucose (mg/dL) 118 H 130 H 137 H (75-99) mg/dL Magnesium (1.6-2.3) mg/dL 07/23/17 07/23/17 07/23/17 Range/Units 04:40 04:40 07:03 RBC 2.99 L (4.30-5.90) m/uL Hgb 11.2 L (13.0-17.5) gm/dL Hct 32.7 L (39.0-53.0) % MCV 109.2 H (80.0-100.0) fL MCH 37.3 H (25.0-35.0) pg Lymphocytes # 0.5 L (1.0-4.8) k/uL Chloride 111 H (98-107) mmol/L Carbon Dioxide 18 L (22-30) mmol/L BUN 37 H (9-20) mg/dL Creatinine 1.80 H (0.66-1.25) mg/dL Glucose 118 H (74-99) mg/dL POC Glucose (mg/dL) 120 H (75-99) mg/dL Magnesium 1.5 L (1.6-2.3) mg/dL Microbiology - Last 24 Hours (Table) 07/21/17 01:30 Urine Culture - Final Urine,Catheterized Assessment and Plan (1) Respiratory failure Status: Acute (2) Hypoxemia Status: Acute (3) Hypertension Status: Acute (4) Lipidemia Status: Acute (5) COPD (chronic obstructive pulmonary disease) Status: Acute (6) Angioedema Status: Acute Plan: Plan dated 07/21/2017 We will see if the patient is ready for extubation. We will hold his sedation. We will get weaning parameters. We'll place the patient on pressure support of 5 and CPAP of 5. We'll do a cuff leak. Additional recommendations and suggestions are forthcoming. Plan dated 07/23/2017 This is a 52-year-old male who is doing much better status post extubation. He developed angioedema and a compromised upper airway. We believe it may benefit lisinopril which is an ROBBI inhibitor. Anyway he should never take another ROBBI inhibitor again. This is a common side effect of that class of medications. Anyway, the patient is doing much better. Seemed to get through his alcohol withdrawal syndrome. Can be transferred to the general medical floor. No additional recommendations are made. We'll see only as needed once transferred. Time with Patient: Less than 30
[2017-07-23] MEDS: POTASSIUM CHLORIDE ER 20 MEQ TAB.ER PO SCH ×2 (11:44→20:46)
[2017-07-23 11:51] LABS: Glucose,Whole Blood 139 mg/dL (75-99)
--- NOTE | 2017-07-23 13:26 | P.PN ---
Progress Note - Text Interval History: Patient is a 52-year-old male who was seen in consultation and due to his being groggy or was unable to complete the evaluation and so returned today to complete the psychiatric evaluation. Patient confirmed that he had been seen in [place] by a psychiatrist in 1999 for 1 year and was treated with Zoloft and then with Effexor reports at that time he was lazy had a decreased appetite and loss of interest was not working but had no suicidal ideation and has never made a suicide attempt. He reports the medications did not work. Patient was for 25 years and he was in 2013 in a house they were living and was foreclosed on this is the reason the patient moved in with his parents in 2013. He is supported on Social Security disability which he states he has received secondary to pain in his back, neck and legs. He also supported on a pension from the [employer]. Patient states that he has been using alcohol since the age of 21 has had several blackouts in the past and states in the past he was drinking a half gallon of liquor every several days. He states that he has quit drinking beer and recently has been drinking about a fifth of alcohol a week, yesterday he told me he was drinking beer and alcohol. He denies any marijuana, cocaine and heroin amphetamines, and the diazepam and abuse currently or in the past. He states he has been on pain medication for the last 6 years and has never abused it. Patient denied any family history of psychiatric or substance or alcohol abuse disorders and denied any completed suicides. He reports he has never had a legal history. Patient did not endorse any symptoms of viviana, psychosis, or anxiety currently or in the past. Patient reports he had one episode of depression that was treated in the past. Patient states that the med patient's did not help him patient has used alcohol consistently since the age of 21. He reported no prior alcohol rehab programs. Mental Status: Appearance/Attitude: Patient is dressed in a hospital gown, is up walking around the bed and is in no acute distress, makes intermittent eye contact and is cooperative. Behavior: Patient does not display psychomotor agitation or retardation. Speech/Language: Patient's speech is spontaneous, normal volume and rhythm and he is coherent. Thought Process: Patient is goal-directed and there is no evidence of circumstantial or tangential thought no loose associations or flight of ideas Thought Content: Patient denies any auditory hallucination and reports he is no longer having visual hallucinations that he was having yesterday, no paranoid or delusional ideation was elicited. Patient states that he is in pain most of the time and this causes him to not be able to do many things. He states that he spends most of his time at his parents home. States that he has difficulty falling asleep and staying asleep. He reported no appetite disturbance. Suicidal/Homicidal Ideation: Patient denies any current suicidal or homicidal ideation. Sensorium/Cognition: Patient is alert, oriented to person place and time and his memory is grossly intact, patient was better able today to recall events from the past. Mood/Affect: Patient's mood is pleasant, he reports he is depressed by his inability to do the things that he would like to do was able to do in the past and his affect is appropriate. Insight/Judgement: Patient's insight and judgment are fair, patient does not see the need for any rehab programs Assessment: Patient today is more alert and better able to give a history. He reports that in the past he was drinking alcohol at a increased quantity than he has been recently, he reports drinking a fifth a week recently states that he wasn't drinking beer but yesterday when I interviewed him he did state that he was. Patient has been using alcohol since the age of 21 and he does not feel that his alcohol use is a problem. Patient has not worked since 1997 due to pain in his neck, back and legs and is on Social Security disability due to this. Patient is no longer having visual hallucinations. Patient does not express any suicidal ideation and is upset with his lack of ability to do things secondary to his pain. Plan: Patient declines referrals for outpatient or inpatient alcohol rehab programs or referrals for outpatient counseling to assist him in coping with his pain that he states prevents him from doing things that he would like to do. Patient has not expressing any suicidal ideation, is not endorsing symptoms of viviana, psychosis and his depressive complaints are secondary to his pain and lack of ability to do things. This time I see no need for psychotropic medication but did encourage the patient to consider rehab referral for inpatient or outpatient alcohol use and consider referral for outpatient counseling to assist him with his coping strategies to deal with this pain. Patient again declined these. I will sign off the case and if there are any questions or concerns please don't hesitate to contact me.]
[2017-07-23 20:21] LABS: Glucose,Whole Blood 141 mg/dL (75-99)
[2017-07-24 00:41] LABS: Glucose,Whole Blood 123 mg/dL (75-99)
[2017-07-24] MEDS ORDERED: LABETALOL 200 MG TAB PO STA (01:34)
[2017-07-24] MEDS: LORazepam 2 MG/ML SYRINGE IV PRN ×6 (01:36→17:07)
[2017-07-24] MEDS: methylPREDNISolone SOD SUCCI 125 MG/2 ML VIAL IV SCH ×3 (05:40→17:07)
[2017-07-24] MEDS: NICOTINE 14MG/24HR PATCH TRANSDERM SCH ×2 (07:26→07:33)
[2017-07-24] MEDS: METOPROLOL SUCCINATE (ER) 100 MG TAB.ER.24H PO SCH (07:26)
[2017-07-24] MEDS: amLODIPine 10 MG TAB PO SCH (07:26)
[2017-07-24] MEDS: PANTOPRAZOLE 40 MG TABLET PO SCH (07:26)
[2017-07-24] MEDS: POTASSIUM CHLORIDE ER 20 MEQ TAB.ER PO SCH ×2 (07:26→20:56)
[2017-07-24] MEDS: cloNIDine HCL 0.2 MG TAB PO SCH ×2 (07:26→20:58)
[2017-07-24 12:26] LABS: Glucose,Whole Blood 111 mg/dL (75-99)
--- NOTE | 2017-07-24 17:04 | P.PN ---
Subjective Progress note being dictated for Dr. Osei 07/21/17 Interval history: This a 52-year-old gentleman admitted with angioedema of uvula and lips, metabolic, toxic encephalopathy, DTs, and multiple other medical issues. Maintained on CIWA protocol.Agitated, combative. Received Haldol. Transferred to ICU. Developed respiratory distress and required intubation. Extubated today and currently maintaining O2 sats of 96% on 4 L nasal cannula. Parents at bedside. They state patient lives with them. Parents report patient is severely depressed, sneaks to drink in his car, hides in his bedroom for lengthy amounts of time,stays up all night, sleeps dueing the day, unaware of drug abuse. Parents state patient also follows at the pain clinic. Patient currently DTs, confused. Disoriented, agitated. Brain CT reported no acute intracranial abnormality, left maxillary sinus disease with large polyp/mucosal retention cyst/sinusitis. 07/22/2017 maintained on IV fluid hydration,CIWA protocol. Continues in DTs, less agitated, less combative. Telemetry sinus rhythm. Hypertensive. Maintaining O2 sats of 97% on 3 L nasal cannula. Objective - Vital Signs Vital signs: Vital Signs Temp 99.0 F 07/22/17 12:00 Pulse 83 07/22/17 15:00 Resp 13 07/22/17 15:00 BP 151/92 07/22/17 15:00 Pulse Ox 97 07/22/17 15:00 Intake & Output 07/21/17 07/22/17 07/22/17 18:59 06:59 18:59 Intake Total 1175 3211.2 760 Output Total 1215 1455 950 Balance -40 1756.2 -190 Weight 88.8 kg 88.5 kg 88.5 kg Intake: IV 875 Magnesium Sulfate-D5w Pmx 200 1 gm In Dextrose/Water 1 100ml.bag @ 100 mls/hr IVPB Q1H [facility] Rx#: [id number] Sodium Chloride 0.9% 1, 675 000 ml @ 75 mls/hr IV . [id number] Rx#:[id number] Intake, IV Titration 300 3211.2 300 Amount Magnesium Sulfate-D5w Pmx 200 1 gm In Dextrose/Water 1 100ml.bag @ 100 mls/hr IVPB Q1H [facility] Rx#: [id number] Mvi, Adult No.4 with Vit 300 1811.2 K 10 ml Thiamine 100 mg Folic Acid 1 mg In Sodium Chloride 0.9% 1,000 ml @ 100 mls/hr IV .BY DURATION [facility] Rx#: [id number] Sodium Chloride 0.9% 1, 1400 100 000 ml @ 100 mls/hr IV . BY DURATION [facility] Rx#: [id number] Oral 460 Output: Gastric Drainage 100 Urine 1115 1455 950 Other: Voiding Method Indwelling Catheter Indwelling Catheter Indwelling Catheter # Voids 2 2 - Exam PHYSICAL EXAM: VITAL SIGNS: As above GENERAL: Lying in bed, sleeping, no acute distress HEENT: Conjunctivae normal. eyes normal. NECK: No JVD. No thyroid enlargement. CARDIOVASCULAR: S1, S2 muffled. No murmur RESPIRATION: Breath sounds diminished in the bases. Scattered rhonchi, no wheezing. ABDOMEN: Soft, nontender . No guarding. no masses palpable.Bowel sounds heard. LEGS: No edema. no swelling PSYCHIATRY: Confused ,Disoriented, answers to name. NERVOUS SYSTEM: Unable to perform given patient's current confusion and agitation and disorientation Skin: no ulcer no rash - Labs CBC & Chem 7: 07/23/17 04:40 07/23/17 04:40 Labs: Abnormal Lab Results - Last 24 Hours (Table) 07/21/17 07/21/17 07/22/17 Range/Units 16:54 20:20 05:31 RBC (4.30-5.90) m/uL Hgb (13.0-17.5) gm/dL Hct (39.0-53.0) % MCV (80.0-100.0) fL MCH (25.0-35.0) pg Plt Count (150-450) k/uL Neutrophils # (1.3-7.7) k/uL Lymphocytes # (1.0-4.8) k/uL Chloride 112 H (98-107) mmol/L Carbon Dioxide 19 L (22-30) mmol/L BUN 38 H (9-20) mg/dL Creatinine 2.00 H (0.66-1.25) mg/dL Glucose 109 H (74-99) mg/dL POC Glucose (mg/dL) 103 H 112 H (75-99) mg/dL Phosphorus 6.0 H (2.5-4.5) mg/dL 07/22/17 07/22/17 07/22/17 Range/Units 07:48 09:03 12:01 RBC 2.92 L (4.30-5.90) m/uL Hgb 10.9 L (13.0-17.5) gm/dL Hct 32.7 L (39.0-53.0) % MCV 111.7 H (80.0-100.0) fL MCH 37.4 H (25.0-35.0) pg Plt Count 134 L (150-450) k/uL Neutrophils # 8.8 H (1.3-7.7) k/uL Lymphocytes # 0.5 L (1.0-4.8) k/uL Chloride (98-107) mmol/L Carbon Dioxide (22-30) mmol/L BUN (9-20) mg/dL Creatinine (0.66-1.25) mg/dL Glucose (74-99) mg/dL POC Glucose (mg/dL) 107 H 118 H (75-99) mg/dL Phosphorus (2.5-4.5) mg/dL Microbiology - Last 24 Hours (Table) 07/21/17 01:30 Urine Culture - Final Urine,Catheterized Assessment and Plan Plan: 1. Acute hypoxic respiratory failure, status post mechanical ventilation. 2. DTs, EtOH abuse, possibly drug abuse. 3. Acute angioedema, possibley related to lisniopril, resolved. 4. Acute COPD exacerbation 5. Change in mental status, acute metabolic, toxic encephalopathy. 6. Hypertension Plan: Continue on current medication regime ,monitoring and symptomatic treatment. Maintain CIWA protocol, IV fluid hydration. Continue close monitoring in ICU. Prognosis guarded. The impression and plan of care has been dictated as directed as a scribe. : I performed a H&P examination of this patient and discussed the same with the dictator. I agree with the dictator's note. Any additional findings/opinions/ etc. will be noted.
--- NOTE | 2017-07-24 17:12 | P.PN ---
Subjective Progress note being dictated for Dr. Osei 07/21/17 Interval history: This a 52-year-old gentleman admitted with angioedema of uvula and lips, metabolic, toxic encephalopathy, DTs, and multiple other medical issues. Maintained on CIWA protocol.Agitated, combative. Received Haldol. Transferred to ICU. Developed respiratory distress and required intubation. Extubated today and currently maintaining O2 sats of 96% on 4 L nasal cannula. Parents at bedside. They state patient lives with them. Parents report patient is severely depressed, sneaks to drink in his car, hides in his bedroom for lengthy amounts of time,stays up all night, sleeps dueing the day, unaware of drug abuse. Parents state patient also follows at the pain clinic. Patient currently DTs, confused. Disoriented, agitated. Brain CT reported no acute intracranial abnormality, left maxillary sinus disease with large polyp/mucosal retention cyst/sinusitis. 07/22/2017 maintained on IV fluid hydration,CIWA protocol. Continues in DTs, less agitated, less combative. Telemetry sinus rhythm. Hypertensive. Maintaining O2 sats of 97% on 3 L nasal cannula. 07/23/2017 more alert, good diet intake with no nausea vomiting or diarrhea. Oxygen has been weaned off completely. Telemetry sinus rhythm. Hypertensive. Evaluated by psychiatry with recommendations noted. Objective - Vital Signs Vital signs: Vital Signs Temp 98.8 F 07/23/17 15:45 Pulse 75 07/23/17 16:00 Resp 18 07/23/17 16:00 BP 160/121 07/23/17 15:45 Pulse Ox 93 L 07/23/17 15:45 Intake & Output 07/22/17 07/23/17 07/23/17 18:59 06:59 18:59 Intake Total 1300 1111.2 440 Output Total 1675 1565 845 Balance -375 -453.8 -405 Weight 88.5 kg 83 kg 83 kg Intake: Intake, IV Titration 300 1011.2 100 Amount Magnesium Sulfate-D5w Pmx 200 1 gm In Dextrose/Water 1 100ml.bag @ 100 mls/hr IVPB Q1H [facility] Rx#: [id number] Magnesium Sulfate-D5w Pmx 100 1 gm In Dextrose/Water 1 100ml.bag @ 100 mls/hr IVPB Q1H [facility] Rx#: [id number] Mvi, Adult No.4 with Vit 1011.2 K 10 ml Thiamine 100 mg Folic Acid 1 mg In Sodium Chloride 0.9% 1,000 ml @ 100 mls/hr IV .BY DURATION [facility] Rx#: [id number] Sodium Chloride 0.9% 1, 100 000 ml @ 100 mls/hr IV . BY DURATION [facility] Rx#: [id number] Oral 1000 100 340 Output: Urine 1675 1565 845 Other: Voiding Method Indwelling Catheter Indwelling Catheter Indwelling Catheter # Voids 2 2 - Exam PHYSICAL EXAM: VITAL SIGNS: As above GENERAL: Sitting up in bed, no acute distress HEENT: Conjunctivae normal. eyes normal. NECK: No JVD. No thyroid enlargement. CARDIOVASCULAR: S1, S2 muffled. No murmur RESPIRATION: Breath sounds diminished in the bases. Scattered rhonchi, no wheezing. ABDOMEN: Soft, nontender . No guarding. no masses palpable.Bowel sounds heard. LEGS: No edema. no swelling PSYCHIATRY: Alert and oriented 2, cooperative, no agitation NERVOUS SYSTEM: No focal deficits Skin: no ulcer no rash - Labs CBC & Chem 7: 07/23/17 04:40 07/23/17 04:40 Labs: Abnormal Lab Results - Last 24 Hours (Table) 07/22/17 07/22/17 07/23/17 Range/Units 17:33 21:04 04:40 RBC 2.99 L (4.30-5.90) m/uL Hgb 11.2 L (13.0-17.5) gm/dL Hct 32.7 L (39.0-53.0) % MCV 109.2 H (80.0-100.0) fL MCH 37.3 H (25.0-35.0) pg Lymphocytes # 0.5 L (1.0-4.8) k/uL Chloride (98-107) mmol/L Carbon Dioxide (22-30) mmol/L BUN (9-20) mg/dL Creatinine (0.66-1.25) mg/dL Glucose (74-99) mg/dL POC Glucose (mg/dL) 130 H 137 H (75-99) mg/dL Magnesium (1.6-2.3) mg/dL 07/23/17 07/23/17 07/23/17 Range/Units 04:40 07:03 11:49 RBC (4.30-5.90) m/uL Hgb (13.0-17.5) gm/dL Hct (39.0-53.0) % MCV (80.0-100.0) fL MCH (25.0-35.0) pg Lymphocytes # (1.0-4.8) k/uL Chloride 111 H (98-107) mmol/L Carbon Dioxide 18 L (22-30) mmol/L BUN 37 H (9-20) mg/dL Creatinine 1.80 H (0.66-1.25) mg/dL Glucose 118 H (74-99) mg/dL POC Glucose (mg/dL) 120 H 139 H (75-99) mg/dL Magnesium 1.5 L (1.6-2.3) mg/dL Microbiology - Last 24 Hours (Table) 07/21/17 01:30 Urine Culture - Final Urine,Catheterized Assessment and Plan Plan: 1. Acute hypoxic respiratory failure, status post mechanical ventilation. 2. DTs, EtOH abuse, possibly drug abuse. 3. Acute angioedema, possibley related to lisniopril, resolved. 4. Acute COPD exacerbation 5. Change in mental status, acute metabolic, toxic encephalopathy. 6. Hypertension Plan: Continue on current medication regime ,monitoring and symptomatic treatment. Maintain CIWA protocol, IV fluid hydration. Cleared for transfer out of ICU by sales operations director to MedSurg unit. Norvasc added to med regime. Further recommendations to follow. The impression and plan of care has been dictated as directed as a scribe. : I performed a H&P examination of this patient and discussed the same with the dictator. I agree with the dictator's note. Any additional findings/opinions/ etc. will be noted.
--- NOTE | 2017-07-24 17:19 | P.PN ---
Subjective Progress note being dictated for Dr. Osei 07/21/17 Interval history: This a 52-year-old gentleman admitted with angioedema of uvula and lips, metabolic, toxic encephalopathy, DTs, and multiple other medical issues. Maintained on CIWA protocol.Agitated, combative. Received Haldol. Transferred to ICU. Developed respiratory distress and required intubation. Extubated today and currently maintaining O2 sats of 96% on 4 L nasal cannula. Parents at bedside. They state patient lives with them. Parents report patient is severely depressed, sneaks to drink in his car, hides in his bedroom for lengthy amounts of time,stays up all night, sleeps dueing the day, unaware of drug abuse. Parents state patient also follows at the pain clinic. Patient currently DTs, confused. Disoriented, agitated. Brain CT reported no acute intracranial abnormality, left maxillary sinus disease with large polyp/mucosal retention cyst/sinusitis. 07/22/2017 maintained on IV fluid hydration,CIWA protocol. Continues in DTs, less agitated, less combative. Telemetry sinus rhythm. Hypertensive. Maintaining O2 sats of 97% on 3 L nasal cannula. 07/23/2017 more alert, good diet intake with no nausea vomiting or diarrhea. Oxygen has been weaned off completely. Telemetry sinus rhythm. Hypertensive. Evaluated by psychiatry with recommendations noted. 07/24/2017. Transferred out of ICU yesterday to MedSurg unit. Continues to improve. Requiring Ativan. Shakiness persists. Blood pressure better controlled. Objective - Vital Signs Vital signs: Vital Signs Temp 98.1 F 07/24/17 15:00 Pulse 74 07/24/17 16:00 Resp 18 07/24/17 16:00 BP 152/101 07/24/17 15:00 Pulse Ox 95 07/24/17 15:00 Intake & Output 07/23/17 07/24/17 07/24/17 18:59 06:59 18:59 Intake Total 1451.2 540 360 Output Total 845 Balance 606.2 540 360 Weight 83 kg 88 kg Intake: Intake, IV Titration 1111.2 Amount Magnesium Sulfate-D5w Pmx 100 1 gm In Dextrose/Water 1 100ml.bag @ 100 mls/hr IVPB Q1H [facility] Rx#: [id number] Mvi, Adult No.4 with Vit 1011.2 K 10 ml Thiamine 100 mg Folic Acid 1 mg In Sodium Chloride 0.9% 1,000 ml @ 100 mls/hr IV .BY DURATION [facility] Rx#: [id number] Oral 340 540 360 Output: Urine 845 Other: Voiding Method Indwelling Catheter Indwelling Catheter Toilet # Voids 2 2 2 - Exam PHYSICAL EXAM: VITAL SIGNS: As above GENERAL: Sitting up in bed, no acute distress HEENT: Conjunctivae normal. eyes normal. NECK: No JVD. No thyroid enlargement. CARDIOVASCULAR: S1, S2 muffled. No murmur RESPIRATION: Breath sounds diminished in the bases. Scattered rhonchi, no wheezing. ABDOMEN: Soft, nontender . No guarding. no masses palpable.Bowel sounds heard. LEGS: No edema. no swelling PSYCHIATRY: Alert and oriented 2, states he is in the yars[place], oriented to month and year and person. cooperative, no agitation NERVOUS SYSTEM: No focal deficits. Mild DTs, mild shakiness present. Skin: no ulcer no rash - Labs CBC & Chem 7: 07/23/17 04:40 07/23/17 04:40 Labs: Abnormal Lab Results - Last 24 Hours (Table) 07/23/17 07/23/17 07/24/17 Range/Units 16:18 20:19 11:44 POC Glucose (mg/dL) 123 H 141 H 111 H (75-99) mg/dL Assessment and Plan Plan: 1. Acute hypoxic respiratory failure, status post mechanical ventilation. 2. DTs, EtOH abuse, possibly drug abuse. 3. Acute angioedema, possibley related to lisniopril, resolved. 4. Acute COPD exacerbation 5. Change in mental status, acute metabolic, toxic encephalopathy. 6. Hypertension Plan: Continue on current medication regime ,monitoring and symptomatic treatment. Maintain CIWA protocol, IV fluid hydration. Clonidine increased. Possible discharge home tomorrow. The impression and plan of care has been dictated as directed as a scribe. : I performed a H&P examination of this patient and discussed the same with the dictator. I agree with the dictator's note. Any additional findings/opinions/ etc. will be noted.
[2017-07-24 17:26] LABS: Glucose,Whole Blood 96 mg/dL (75-99)
[2017-07-24 20:10] LABS: Glucose,Whole Blood 108 mg/dL (75-99)
[2017-07-24 20:53] VITALS: PULSE 68
[2017-07-25] MEDS: methylPREDNISolone SOD SUCCI 125 MG/2 ML VIAL IV SCH ×2 (00:19→05:23)
[2017-07-25] MEDS: metFORMIN 500 MG TAB PO SCH (01:27)
[2017-07-25 07:11] LABS: Glucose,Whole Blood 84 mg/dL (75-99)
[2017-07-25 08:01] LABS: Calcium 9.5 mg/dL (8.4-10.2); Phosphorous 3.6 mg/dL (2.5-4.5); Potassium 4.1 mmol/L (3.5-5.1)
[2017-07-25] MEDS: amLODIPine 10 MG TAB PO SCH (08:01)
[2017-07-25] MEDS: METOPROLOL SUCCINATE (ER) 100 MG TAB.ER.24H PO SCH (08:01)
[2017-07-25] MEDS: PANTOPRAZOLE 40 MG TABLET PO SCH (08:01)
[2017-07-25] MEDS: cloNIDine HCL 0.2 MG TAB PO SCH (08:02)
[2017-07-25] MEDS: NICOTINE 14MG/24HR PATCH TRANSDERM SCH (08:02)
[2017-07-25] MEDS: POTASSIUM CHLORIDE ER 20 MEQ TAB.ER PO SCH (08:02)
[2017-07-25 08:03] VITALS: BP 174/111; TEMP 98.5
[2017-07-25 08:08] LABS: Basophils % (A) 0 %; CH 36.4; CHCM 33.3; Eosinophils # (A) 0.2 k/uL (0-0.7); Eosinophils % (A) 2 %; HCT 35.8 % (39.0-53.0); HDW 2.24; HGB 12.1 gm/dL (13.0-17.5); Luc % (Auto) 3; Lymphocytes # (A) 2.3 k/uL (1.0-4.8); Lymphocytes % (A) 29 %; MCH 37.2 pg (25.0-35.0); MCHC 33.9 g/dL (31.0-37.0); MCV 109.8 fL (80.0-100.0); Macrocytosis Marked; Mean Platelet Volume 8.3; Monocytes # (A) 0.7 k/uL (0-1.0); Monocytes % (A) 9 %; Neutrophils # (A) 4.5 k/uL (1.3-7.7); Neutrophils % (A) 57 %; RBC 3.26 m/uL (4.30-5.90); RDW 13.5 % (11.5-15.5); WBC 7.9 k/uL (3.8-10.6); WBC (Perox) 8.36
[2017-07-25] MEDS: HYDROcodone/APAP 5-325MG 1 EACH TAB PO PRN (08:12)
[2017-07-25 09:28] VITALS: RESP 18
--- NOTE | 2017-07-28 16:11 | P.DS ---
Providers Date of admission: 07/21/17 11:30 Expected date of discharge: 07/25/17 Attending physician: Felix Osei Consults: 07/20/17 23:35 Consult Physician Routine Consulting Provider: Vijay Loredo Consult Reason/Comments: Patient Transportation Driver Care Do you want consulting provider notified?: Yes 07/21/17 16:24 Consult Physician Routine Consulting Provider: Ana Swift Consult Reason/Comments: depression Do you want consulting provider notified?: Yes Primary care physician: Annmarie Luotiana [facility] Course: Final Diagnoses: 1. Acute hypoxic respiratory failure, status post mechanical ventilation. 2. DTs, EtOH abuse, possibly drug abuse. 3. Acute angioedema, possibley related to lisniopril, resolved. 4. Acute COPD exacerbation 5. Change in mental status, acute metabolic, toxic encephalopathy. 6. Hypertension Hospital course:This a 52-year-old gentleman admitted with angioedema of uvula and lips, metabolic, toxic encephalopathy, DTs, and multiple other medical issues. Brain CT reported no acute intracranial abnormality. Maintained on CIWA protocol.Agitated, combative. Required Haldol as well as Ativan. Transferred to ICU. Developed respiratory distress and required intubation. Extubated. Parents reported patient has severe depression. Evaluated by psychiatry, production control coordinating clerk/sandwich wrapper. Significant clinical improvement. Patient has been cleared by consults for discharge. Patient is being discharged home in a stable condition with guarded prognosis. The impression and plan of care has been dictated as directed as a scribe. : I performed a H&P examination of this patient and discussed the same with the dictator. I agree with the dictator's note. Any additional findings/opinions/ etc. will be noted. Patient Condition at Discharge: Stable Plan - Discharge Summary New Discharge Prescriptions: New cloNIDine HCL [Catapres] 0.2 mg PO TID #90 tab Folic Acid 1 mg PO DAILY #30 tablet Multivitamins, Thera [Multivitamin (formulary)] 1 tab PO DAILY #30 tablet Nicotine 14Mg/24Hr Patch [Habitrol] 1 patch TRANSDERM DAILY #30 patch predniSONE 10 mg PO DIRECTED #30 tab Thiamine [Vitamin B-1] 100 mg PO DAILY #30 tablet LORazepam [Ativan] 0.5 mg PO TID PRN #20 tab PRN Reason: Anxiety Continue HYDROcodone/APAP 10-325MG [Mastic 10-325] 1 tab PO DAILY EPINEPHrine (Auto Inject) [Epipen] 0.3 mg IM ONCE PRN PRN Reason: Anaphylaxis amLODIPine [Norvasc] 10 mg PO DAILY Omeprazole 20 mg PO DAILY Metoprolol Succinate [Toprol XL] 200 mg PO DAILY Discharge Medication List EPINEPHrine (Auto Inject) [Epipen] 0.3 mg IM ONCE PRN 07/21/17 [History] HYDROcodone/APAP 10-325MG [Mastic 10-325] 1 tab PO DAILY 07/21/17 [History] Metoprolol Succinate [Toprol XL] 200 mg PO DAILY 07/21/17 [History] Omeprazole 20 mg PO DAILY 07/21/17 [History] amLODIPine [Norvasc] 10 mg PO DAILY 07/21/17 [History] Folic Acid 1 mg PO DAILY #30 tablet 07/25/17 [Rx] LORazepam [Ativan] 0.5 mg PO TID PRN #20 tab 07/25/17 [Rx] Multivitamins, Thera [Multivitamin (formulary)] 1 tab PO DAILY #30 tablet [Rx] Nicotine 14Mg/24Hr Patch [Habitrol] 1 patch TRANSDERM DAILY #30 patch 07/25/17 [ Rx] Thiamine [Vitamin B-1] 100 mg PO DAILY #30 tablet 07/25/17 [Rx] cloNIDine HCL [Catapres] 0.2 mg PO TID #90 tab 07/25/17 [Rx] predniSONE 10 mg PO DIRECTED #30 tab 07/25/17 [Rx] Follow up Appointment(s)/Referral(s): [facility], Psych [Other] - 1 Week Annmarie Segal DO [Primary Care Provider] - 07/30/17 11:50 am Ambulatory/Diagnostic Orders: Complete Blood Count w/diff [LAB.AMB] Time Frame: 3 Days, Location: Determined By Patient Patient Instructions/Handouts: Angioedema (GEN), Hypoxemia (DC) Activity/Diet/Wound Care/Special Instructions: SW to give patient [facility],support resources info. & #s for [facility]. No etoh, no smoking Dsicharge home with parents Discharge Disposition: HOME SELF-CARE
== END 2017-07-25 12:10 | disposition home or self-care (01) | DRG 915 ==
LOC: EC 12:50 → 3OBS 13:09 → 6ICU 23:51 → OBSVTOIN 07-21 11:30 → 5MS5E 07-23 12:19
PROVIDERS: ADMIT Hospitalist; ATTEND Hospitalist
PROC: 5A1935Z Respiratory Ventilation, Less than 24 Consecutive Hours (ICD-10-PCS; principal; 2017-07-21)
PROC: 0BH17EZ Insertion of Endotracheal Airway into Trachea, Via Natural or Artificial Opening (ICD-10-PCS; 2017-07-21)
PROC: HZ2ZZZZ Detoxification Services for Substance Abuse Treatment (ICD-10-PCS; 2017-07-21)
PROC: 0T9B70Z Drainage of Bladder with Drainage Device, Via Natural or Artificial Opening (ICD-10-PCS; 2017-07-21)
DX: T78.3XXA Angioneurotic edema, initial encounter (principal); J96.01 Acute respiratory failure with hypoxia; G92 Toxic encephalopathy; F10.231 Alcohol dependence with withdrawal delirium; J44.1 Chronic obstructive pulmonary disease with (acute) exacerbation; N17.9 Acute kidney failure, unspecified; I10 Essential (primary) hypertension; K02.9 Dental caries, unspecified; T46.4X5A Adverse effect of angiotensin-converting-enzyme inhibitors, initial encounter; M54.9 Dorsalgia, unspecified; M54.2 Cervicalgia; F19.10 Other psychoactive substance abuse, uncomplicated; F32.9 Major depressive disorder, single episode, unspecified; J33.8 Other polyp of sinus; J32.0 Chronic maxillary sinusitis; M79.606 Pain in leg, unspecified; G89.29 Other chronic pain; E78.5 Hyperlipidemia, unspecified; F17.200 Nicotine dependence, unspecified, uncomplicated; Z71.6 Tobacco abuse counseling; Z71.41 Alcohol abuse counseling and surveillance of alcoholic; Z79.891 Long term (current) use of opiate analgesic; Z79.899 Other long term (current) drug therapy; Z86.79 Personal history of other diseases of the circulatory system; Z86.59 Personal history of other mental and behavioral disorders; Z78.1 Physical restraint status
CPT/HCPCS: 31500; 36600; 70450; 71010; 80048; 80053; 80306; 81001; 82140; 82805; 83735; 84100; 85025; 87086; 94002; 96360; 96361; 96374; 96375; 96376; 99284